=== PATIENT | female | born 1995 | race Caucasian/White ===

== ENCOUNTER 2016-12-07 12:07 | Emergency (ER) | payer BC ==
[2016-12-07 13:35] LABS: Hematocrit 40 % (35-47); Hemoglobin 13.8 g/dl (12.0-16.0); Mean Corpuscular HGB Conc 34 g/dl (31-36); Mean Corpuscular Hemoglobin 30 pg (27-31); Mean Corpuscular Volume 88 fL (80-97); Mean Platelet Volume 8 um3 (7.4-10.4); Red Blood Count 4.59 10^6/ul (4.0-5.4); Red Cell Distribution Width 12 % (10.5-15); White Blood Count 8.5 10^3/ul (3.5-10.8)
[2016-12-07 13:43] LABS: ALT 9 U/L (7-52); AST 12 U/L (13-39); Albumin 4.5 g/dL (3.2-5.2); Alkaline Phosphatase 70 U/L (34-104); Anion Gap 7 mmol/L (2-11); BUN/Creatinine Ratio 13.9 (8-20); Blood Urea Nitrogen 11 mg/dL (6-24); C Reactive Protein 5.07 mg/L (< 5.00); CO2 Carbon Dioxide 28 mmol/L (22-32); Calcium 9.7 mg/dL (8.6-10.3); Chloride 102 mmol/L (101-111); EGFR African American 118.1 (>60); EGFR Non-African American 91.9 (>60); Globulin 3.4 g/dL (2-4); Glucose 84 mg/dL (70-100); Lipase 14 U/L (11.0-82.0); Potassium 3.9 mmol/L (3.5-5.0); Sodium 137 mmol/L (133-145); Total Protein 7.9 g/dL (6.4-8.9)
[2016-12-07] MEDS ORDERED: cefTRIAXone(*) 1 GM in NS 0.9% 50 ML* 50 ML IVPB ONE (14:00)
[2016-12-07] MEDS ORDERED: NS 0.9% 1000 ML* 2,000 ML IV ONE (14:00)
[2016-12-07] MEDS ORDERED: Ketorolac INJ* 30 MG/ML 1 ML VIAL IV PUSH ONE (14:03)
[2016-12-07 14:19] LABS: Urine Bilirubin Negative (Negative); Urine Glucose Negative (Negative); Urine Nitrite Negative (Negative)
--- NOTE | 2016-12-07 14:43 | RAD ---
CLINICAL HISTORY: Right flank pain COMPARISON: None TECHNIQUE: Multiple contiguous axial CT scans were obtained of the abdomen and pelvis, without intravenous contrast enhancement. Coronal and sagittal multiplanar reformations are submitted for review. Oral contrast was not administered. FINDINGS: The study is limited by the lack of intravenous contrast. This limits evaluation of the solid organs and vasculature. LUNG BASES: The lung bases are clear. LIVER: The liver is normal in shape, size, contour, and attenuation. BILE DUCTS: There is no intrahepatic or extrahepatic biliary dilatation. GALLBLADDER: The gallbladder is normal, without pericholecystic inflammatory change. PANCREAS: The pancreas is normal, without mass or ductal dilatation. SPLEEN: Normal in size and appearance. UPPER GI TRACT: Evaluation of the gastrointestinal tract is limited by incomplete gastric distention. The upper GI tract is unremarkable. SMALL BOWEL AND MESENTERY: The small bowel is normal in contour, course, and caliber. There is no obstruction or dilatation. COLON: The colon is normal in contour, course, caliber. There is no pericolonic inflammatory change. The appendix is not well-visualized. There is no inflammatory change in the right lower quadrant. There is large amount of stool within the colon. ADRENALS: Normal bilaterally. KIDNEYS: The kidneys are normal in shape, size, contour, and axis. There is no hydronephrosis or nephrolithiasis. BLADDER: The bladder is smooth in contour. PELVIC ORGANS: The uterus and adnexa are grossly normal for technique. AORTA: The aorta is normal. IVC: Unremarkable LYMPH NODES: There is no lymphadenopathy by size criteria. ABDOMINAL WALL: There is no evidence for abdominal wall hernia. BONES AND SOFT TISSUES: The bones and soft tissues are unremarkable. OTHER: None IMPRESSION: NO HYDRONEPHROSIS OR NEPHROLITHIASIS
[2016-12-07 19:03] VITALS: BP 90/71
--- NOTE | 2016-12-07 19:49 | RAD ---
HISTORY: Right adnexal tenderness COMPARISONS: CT dated December 07, 2016 TECHNIQUE: Multiple transverse and longitudinal ultrasound images were obtained of the pelvis using grayscale, color Doppler, and spectral Doppler imaging using the transabdominal transducer. FINDINGS: UTERUS: The uterus measures 6.7 x 4.6 x 2.8 cm. The uterus is normal in shape, size, contour, and echotexture. ENDOMETRIUM: The endometrial stripe is smooth. The endometrium measures 0.5 cm in thickness. CUL-DE-SAC: There is no free fluid within the cul-de-sac. RIGHT OVARY: The right ovary measures 3.3 x 1.9 x 3.7 cm. Normal arterial and venous waveforms are identifiable within the ovary on spectral Doppler imaging. Multiple follicles are noted. LEFT OVARY: The left ovary measures 2.8 x 1.6 x 3.3 cm. Multiple follicles are noted. Normal arterial and venous waveforms are identifiable within the ovary on spectral Doppler imaging. BLADDER: The visualized bladder is unremarkable. OTHER: None IMPRESSION: UNREMARKABLE ULTRASOUND OF THE PELVIS. NO SONOGRAPHIC FEATURES OF TORSION. PLEASE NOTE THAT PARTIAL OR INTERMITTENT TORSION MAY BE SONOGRAPHICALLY NORMAL.
[2016-12-07] MEDS ORDERED: Sulfamethox/Trimethoprim DS 800/160* TAB PO ONE (20:34)
--- NOTE | 2016-12-12 13:13 | ED ---
Sadaf Guadarrama Edward, scribed for Cristopher Chapman MD on 12/07/16 at 1335 . GI/ HPI - HPI Summary HPI Summary: 21 y/o female presents to ED c/o sudden onset flank pain and pelvic pain starting 10 days ago that became worse three nights ago. Last night the pain became an 8/10 in the middle of the night. The pain is at a 5/10 currently. The pain moves around both flanks and is aggravated with movement. Associated sx: fever, N/V, blood in urine, white vaginal discharge starting within the past 2 days. Denies burning sensation when she urinates. Pt was put on abx (ciprol) by her [facility] for 2 days (@ [facility]). PMHx POTS. SHx sinus surgery. No PMHx or FHx of kidney stones. - History of Current Complaint Chief Complaint: EDFlankPain Time Seen by Provider: 12/07/16 13:34 Stated Complaint: FLANK/PELVIC PAIN Hx Obtained From: Patient Hx Last Menstrual Period: 01/05/16 Onset/Duration: Started Days Ago, Worse Since - 3 days ago Severity: Worse Since: - 3 days ago Current Severity: Moderate Pain Intensity: 5 Location of Pain: Flank - Both flanks, moves around Associated Signs and Symptoms: Positive: Nausea, Vomiting, Discharge, Fever, Hematuria - Blood in urine, Flank Pain, Other: - Pelvic pain - Allergy/Home Medications Allergies/Adverse Reactions: Allergies Allergy/AdvReac Type Severity Reaction Status Date / Time Amoxicillin [From Augmentin] Allergy Intermediate Rash Verified 12/07/16 12:34 Clavulanic Acid Allergy Intermediate Rash Verified 12/07/16 12:34 [From Augmentin] PMH/Surg Hx/FS Hx/Imm Hx Previously Healthy: No Cardiovascular History: Reports: Other Cardiovascular Problems/Disorders - POTS Respiratory History: Reports: Hx Asthma - Surgical History Surgery Procedure, Year, and Place: sinus surgery Infectious Disease History: No Infectious Disease History: Denies: Hx Hepatitis, Hx of Known/Suspected MRSA, History Other Infectious Disease, Traveled Outside the [place] in Last 30 Days - Family History Known Family History: Negative: Blood Disorder, Other - no kidney stones - Social History Occupation: Student Lives: Dormitory/Roommates Alcohol Use: Weekly Hx Substance Use: Yes Substance Use Type: Reports: Marijuana Substance Use Comment - Amount & Last Used: weekly - last time, last week Hx Tobacco Use: No Smoking Status (MU): Never Smoked Tobacco Review of Systems Positive: Fever. Negative: Chills Negative: Erythema Negative: Sore Throat Negative: Chest Pain Negative: Shortness Of Breath, Cough Positive: Vomiting, Nausea. Negative: Abdominal Pain Positive: discharge, flank pain, hematuria, pain - Pelvic pain. Negative: dysuria Negative: Myalgia, Edema Negative: Rash Neurological: Other - No dizziness All Other Systems Reviewed And Are Negative: Yes Physical Exam - Summary Physical Exam Summary: Constitutional: Well-developed, Well-nourished, Alert. (-) Distressed Skin: Warm, Dry HENT: Normocephalic; Atraumatic Eyes: Conjunctiva normal Neck: Musculoskeletal ROM normal neck. (-) JVD, (-) Stridor, (-) Tracheal deviation Cardio: Rhythm regular, rate normal, Heart sounds normal; Intact distal pulses; The pedal pulses are 2+ and symmetric. Radial pulses are 2+ and symmetric. (-) Murmur Pulmonary/Chest wall: Effort normal. (-) Respiratory distress, (-) Wheezes, (-) Rales Abd: Soft, R CVA tenderness, Suprapubic tenderness, (-) Distension, (-) Guarding , (-) Rebound Musculoskeletal: (-) Edema Lymph: (-) Cervical adenopathy Neuro: Alert, Oriented x3 Psych: Mood and affect Normal Pelvic: Thick white discharge at the cervical os. R adnexal tenderness. Lidia was in attendance. Triage Information Reviewed: Yes Vital Signs On Initial Exam: Initial Vitals Temp Pulse Resp BP Pulse Ox 98.4 F 72 16 116/78 100 12/07/16 12:30 12/07/16 12:30 12/07/16 12:30 12/07/16 12:30 12/07/16 12:30 Vital Signs Reviewed: Yes Diagnostics - Vital Signs Vital Signs Temp Pulse Resp BP Pulse Ox 12/07/16 12:30 98.4 F 72 16 116/78 100 - Laboratory Result Diagrams: 12/07/16 13:03 12/07/16 13:03 Lab Statement: Any lab studies that have been ordered have been reviewed, and results considered in the medical decision making process. - CT ABD/PEL CT CT Interpretation: No Acute Changes - NO HYDRONEPHROSIS OR NEPHROLITHIASIS CT Interpretation Completed By: Radiologist - Ultrasound No standard instances Ultrasound Interpretation: No Acute Changes - PELVIS US - UNREMARKABLE ULTRASOUND OF THE PELVIS. NO SONOGRAPHIC FEATURES OF TORSION. PLEASE NOTE THAT PARTIAL OR INTERMITTENT TORSION MAY BE SONOGRAPHICALLY NORMAL. Ultrasound Interpretation Completed By: Radiologist Re-Evaluation - Re-Evaluation 1 Re-Evaluation Time: 14:57 Change: Unchanged - Pain improved slightly with Toradol. Discussed pelvic exam due to clear urine and white vaginal discharge GIGU Course/Dx - Course Assessment/Plan: 21 y/o female presents to ED c/o sudden onset flank pain and pelvic pain starting 10 days ago that became worse three nights ago. Last night the pain became an 8/10 in the middle of the night. The pain is at a 5/10 currently. The pain moves around both flanks and is aggravated with movement. Associated sx: fever, N/V, blood in urine, white vaginal discharge starting within the past 2 days. Denies burning sensation when she urinates. Pt was put on abx (ciprol) by her [facility] for 2 days (@ [facility]). PMHx POTS. SHx sinus surgery. No PMHx or FHx of kidney stones. ABD/PEL CT SHOWS NO HYDRONEPHROSIS OR NEPHROLITHIASIS. IN THE ED COURSE THE pt's pain improved slightly with Toradol. On re-eval I discussed the possibility of performing a pelvic exam because of the pt's clear urine and white vaginal discharge. Pt agrees to undergo a pelvic exam. Recommends pelvic US. PELVIS US - UNREMARKABLE ULTRASOUND OF THE PELVIS. NO SONOGRAPHIC FEATURES OF TORSION. PLEASE NOTE THAT PARTIAL OR INTERMITTENT TORSION MAY BE SONOGRAPHICALLY NORMAL. No ovarian pathology, urine appears clean although possibly partially treated infection. The pt is non toxic appearing. Pelvic culture pending. Pelvic exam unremarkable except adnexal pain. Pt will be d/c home with f/u with the [facility]. Pt will be instructed to discontinue Cipro and start Bactrim. - Diagnoses Provider Diagnoses: Flank pain, Lower abdominal pain Discharge - Discharge Plan Condition: Stable Disposition: HOME Prescriptions: Sulfamethox/Trimethoprim DS* [Bactrim DS 800/160 TAB*] 1 tab PO BID #10 tab traMADol TAB* [Ultram*] 25 mg PO Q6HR PRN #8 tab MDD 4 PRN Reason: Pain - Moderate To Severe Patient Education Materials: Abdominal Pain (ED), Flank Pain (ED) Referrals: [facility] [Primary Care Provider] - 5 Days (PLEASE F/U IN 3-5 DAYS) Additional Instructions: DISCONTINUE CIPRO, START BACTRIM The documentation as recorded by the Sadaf mcwilliams Edward accurately reflects the service I personally performed and the decisions made by , Cristopher Chapman MD.
== END 2016-12-07 20:52 | disposition home or self-care (01) ==
LOC: ED 12:07
DX: R10.30 Lower abdominal pain, unspecified (principal); J45.909 Unspecified asthma, uncomplicated
CPT/HCPCS: 36415; 74176; 76856; 80053; 81003; 83605; 83690; 84702; 85025; 86140; 87480; 87491; 87510; 87591; 87661; 96360; 96374; 99283; A9270-GY; J0696; J1885